=== PATIENT | male | born 1990 | race Caucasian/White ===

== ENCOUNTER 2017-11-07 00:15 | Emergency (ER) | payer SELFPAY ==
--- NOTE | 2017-11-07 00:29 | NUR ---
PT STATES HE RATHER GO HOME THEN WAIT FOR A ROOM, PT WALKED OUT WITH A STEADY GAIT
== END 2017-11-07 00:32 | disposition left against medical advice (07) ==
LOC: ER 00:21
DX: Z53.21 Procedure and treatment not carried out due to patient leaving prior to being seen by health care provider (principal)